=== PATIENT | male | born 1960 | race African-American/Black ===

== ENCOUNTER 2017-09-05 18:02 | Emergency (ER) | payer BC ==
[~2017-09-05] VITALS: Ht 167.6 cm; Wt 72.0 kg
[2017-09-06] MEDS ORDERED: LIDOCAINE HCL/PF 1% 10 MG/ML 5ML VIAL IJ SCH (02:13)
[2017-09-06] MEDS ORDERED: LIDOCAINE HCL 1% 20ML VIAL (Pyxis) INJ INFIL ONE (02:15)
[2017-09-06] MEDS ORDERED: CEFTRIAXONE SODIUM 1 G/VIAL IM ONE (02:15)
[2017-09-06] MEDS ORDERED: CEFTRIAXONE 1 G PREMIX 50 ML IV ONE (02:15)
[2017-09-06] MEDS ORDERED: IBUPROFEN 600MG TABLET PO ONE (02:15)
[2017-09-06 02:25] VITALS: BP 153/69
== END 2017-09-06 02:33 | disposition home or self-care (01) ==
LOC: ER 18:02
DX: T63.301A Toxic effect of unspecified spider venom, accidental (unintentional), initial encounter (principal); L03.116 Cellulitis of left lower limb; R03.0 Elevated blood-pressure reading, without diagnosis of hypertension; Y92.89 Other specified places as the place of occurrence of the external cause; Z87.891 Personal history of nicotine dependence
CPT/HCPCS: 96372; 99283; J0696; J3490